=== PATIENT | male | born 2005 | race Caucasian/White ===

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

== ENCOUNTER 2023-03-13 20:17 | Outpatient (CLI) | payer MEDICAID, SELFPAY ==
--- NOTE | 2023-03-13 | DI.RAD_ITS ---
Exam(s) XR THORACIC SPINE COMPLETE EXAM: XR THORACIC SPINE COMPLETE CLINICAL HISTORY: BACK PAIN THORACIC REGION. TECHNIQUE: 2D digital imaging was performed. Three views. COMPARISON: No exams were available for comparison FINDINGS: BONES: There is no fracture or destructive lesion. The vertebral bodies and posterior elements are un remarkable. ALIGNMENT: Within normal limits. DISKS: Interverebral disc spaces are maintained. SOFT TISSUE: Visualized lungs are clear. Heart size is normal. IMPRESSION: Unremarkable radiographs of the thoracic spine. DATA REPOSITORY: RADIATION DOSE DELIVERED:
--- NOTE | 2023-03-13 | DI.RAD_ITS ---
Exam(s) XR WRIST RT COMPL NAVICULAR EXAM: XR WRIST RT COMPL NAVICULAR CLINICAL HISTORY: WRIST PAIN RIGHT. TECHNIQUE: 2D digital imaging was performed. Three views. COMPARISON: CR,XR XR WRIST RT COMPLETE from 06/05/2021 FINDINGS: BONES: No acute fracture is present. No bony destructive lesion is seen. JOINTS: The carpal bones are normally aligned. SOFT TISSUE: Normal. IMPRESSION: Unremarkable radiographs of the right wrist. DATA REPOSITORY: RADIATION DOSE DELIVERED:
--- NOTE | 2023-03-13 | DI.RAD_ITS ---
Exam(s) XR KNEE RT 3V AP,LAT,POOJA EXAM: XR KNEE RT 3V AP,LAT,POOJA CLINICAL HISTORY: RIGHT KNEE PAIN. TECHNIQUE: 2D digital imaging was performed. Three views. COMPARISON: No exams were available for comparison FINDINGS: BONES: No acute fracture is present. No bony destructive lesion is seen. JOINTS: The knee is normally aligned. No joint effusion is seen. SOFT TISSUE: Normal. IMPRESSION: Unremarkable radiographs of the right knee. DATA REPOSITORY: RADIATION DOSE DELIVERED:
--- NOTE | 2023-03-13 21:58 | DI.VRAD_ITS ---
PROCEDURE INFORMATION: Exam: XR Thoracic Spine Exam date and time: 03/13/2023 21:32 Age: 17 years old Clinical indication: Other: Back pain TECHNIQUE: Imaging protocol: Radiologic exam of the thoracic spine. Views: 3 views. COMPARISON: CR XR LUMBAR SPINE COMPLETE 10/15/2020 13:40 FINDINGS: Bones/joints: No acute fracture or subluxation. Soft tissues: Unremarkable. IMPRESSION: No acute bony pathology. Dictated and Authenticated by: Anjana Stein MD. Ordering:PRO Lopez MD
--- NOTE | 2023-03-13 21:58 | DI.VRAD_ITS ---
PROCEDURE INFORMATION: Exam: XR Right Wrist Exam date and time: 03/13/2023 21:27 Age: 17 years old Clinical indication: Other: RT wrist ? fracture TECHNIQUE: Imaging protocol: Radiologic exam of the right wrist. Views: 3 or more views. COMPARISON: CR XR WRIST RT COMPLETE 06/05/2021 18:52 FINDINGS: Bones/joints: No acute fracture or subluxation. The scaphoid is intact. Soft tissues: Unremarkable. IMPRESSION: No acute bony pathology. Dictated and Authenticated by: Anjana Stein MD. Ordering:PRO Lopez MD
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
== END 2023-03-13 20:37 ==
LOC: DI 20:19
PROVIDERS: PCP Pediatrics; Visit Provider Physician Assistant Medical
DX: V18.0XXA Pedal cycle driver injured in noncollision transport accident in nontraffic accident, initial encounter (principal); M54.6 Pain in thoracic spine; M25.561 Pain in right knee; M25.531 Pain in right wrist
CPT/HCPCS: 73562; 72072; 73110

== ENCOUNTER 2023-03-22 01:02 | Outpatient (CLI) | payer MEDICAID, SELFPAY ==
--- NOTE | 2023-03-22 | DI.MRI_ITS ---
Exam(s) MR UPPER JOINT RT WO EXAM: MR UPPER JOINT RT WO CLINICAL HISTORY: RT WRIST PAIN M25.531 INJURY LAST WEEK W/O FX, ? LIGAMENTOUS INJURY. TECHNIQUE: Multiplanar multisequence MRI was performed. COMPARISON: Plain films 13 March 2023 FINDINGS: Exam is mildly limited by motion. BONES: There is no fracture or contusion pattern. JOINTS: The radiocarpal joint is unremarkable. The carpal joints are unremarkable. No joint effus ions. TENDONS: Flexors: Unremarkable. Extensors: Unremarkable. MUSCLES: Unremarkable. MEDIAN NERVE: Unremarkable on this noncontrast examination. SOFT TISSUES: Unremarkable. LIGAMENTS: Unremarkable. TRIANGULAR FIBROCARTILAGE: Unremarkable. OTHER: Scapholunate ligament appears intact. IMPRESSION: Unremarkable MRI of the right wrist. DATA REPOSITORY:
== END 2023-03-22 01:22 ==
LOC: DI 01:02
PROVIDERS: PCP Pediatrics; Visit Provider Physician Assistant Medical
DX: M25.531 Pain in right wrist (principal); V18.0XXD Pedal cycle driver injured in noncollision transport accident in nontraffic accident, subsequent encounter
CPT/HCPCS: 73221

== ENCOUNTER 2023-04-25 01:03 | Outpatient (CLI) | payer MEDICAID, SELFPAY ==
--- NOTE | 2023-04-25 06:49 | DI.MRI_ITS ---
Exam(s) MR LOWER JOINT RT WO EXAM: MR LOWER JOINT RT WO CLINICAL HISTORY: pain, ?meniscus tear,INTERNAL DERANGEMENT RT KNEE,M23.91. TECHNIQUE: Multiplanar multisequence MRI was performed. COMPARISON: CR,XR XR KNEE RT 3V AP,LAT,POOJA from 03/13/2023 FINDINGS: BONES: Small contusions are seen in the femoral condyles bilaterally. No evidence of an occult fract ure. JOINTS: Articular cartilage is unremarkable. There is a small amount of fluid in the joint space. TENDONS: Extensor mechanism: Unremarkable. Medial retinaculum: Unremarkable. Lateral retinaculum: Unremarkable. Popliteus: Unremarkable. MUSCLES: Unremarkable. MENISCI: The medial meniscus is unremarkable. The lateral meniscus is unremarkable. SOFT TISSUES: Unremarkable. LIGAMENTS: Anterior Cruciate: Unremarkable. Posterior Cruciate: Unremarkable. Medial Collateral:Unremarkable. Lateral Collateral: Unremarkable. OTHER: IMPRESSION: 1. There is no evidence of a meniscal or ligament tear. 2. No evidence of an occult fracture. 3. Mild edema seen in the femoral condyles. This may represent contusions. DATA REPOSITORY:
== END 2023-04-25 01:23 ==
PROVIDERS: PCP Pediatrics; Visit Provider Student in an Organized Health Care Education/Training Program
DX: M25.561 Pain in right knee (principal)
CPT/HCPCS: 73721

== ENCOUNTER 2023-08-19 00:55 | Emergency (ER) | payer MEDICAID, SELFPAY ==
[2023-08-19 00:57] VITALS: PULSE 84; RESP 18; TEMP 36.8; O2SAT 99
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
[2023-08-19 02:30] VITALS: BP 108/53; PULSE 68; RESP 18; O2SAT 99
== END 2023-08-19 04:21 | disposition home or self-care (01) ==
PROVIDERS: Emergency Provider Emergency Medicine Emergency Medical Services; PCP Pediatrics
DX: H93.13 Tinnitus, bilateral (principal); S06.0X0A Concussion without loss of consciousness, initial encounter; F17.210 Nicotine dependence, cigarettes, uncomplicated; V86.06XA Driver of dirt bike or motor/cross bike injured in traffic accident, initial encounter; Z87.820 Personal history of traumatic brain injury
CPT/HCPCS: 82962; 99283

== ENCOUNTER 2023-10-08 18:48 | Outpatient (REF) | payer MEDICAID, SELFPAY ==
[2023-10-08 19:24] LABS: Abs Immature Grans 0.04 10^3/uL (0.0-0.06); Absolute Basophil Count 0.06 10^3/uL (0.0-0.2); Absolute Eosinophil Count 0.03 10^3/uL (0.0-0.7); Absolute Lymphocyte Count 2.09 10^3/uL (1.2-3.4); Absolute Neutrophil Count 6.02 10^3/uL (1.2-6.7); Basophils % 0.7; ESR 5 mm/hr (0-15); Eosinophils % 0.3; HCT 46.3 % (40.0-50.0); HGB 16.1 g/dL (13.5-17.5); Immature Grans % 0.5; Lymphocytes % 23.6; MCH 30.6 pg (27.0-33.0); MCHC 34.8 % (32.0-36.0); MCV 88 fL (80-95); MPV 9.7 fL (8.0-11.0); Monocytes % 6.8; Neutrophils % 68.1; Platelet Count 262 10^3/uL (130-400); RBC 5.27 10^6/uL (4.36-5.78); RDW 11.9 % (11.8-14.1); RDW-SD 38.3 fL; WBC 8.84 10^3/uL (4.4-10.8)
[2023-10-08 19:52] LABS: ALT 30 U/L (16-63); AST 27 U/L (15-37); Albumin 4.8 g/dL (3.4-5.0); Alkaline Phosphatase 51 U/L (46-116); Amylase 18 U/L (25-115); Anion Gap 13.3 mmol/L (3-11); BUN 20 mg/dL (7-18); Bilirubin, Total 0.8 mg/dL (0.2-1.0); CO2 25.7 mmol/L (21.0-32.0); CREATININE 0.9 mg/dL (0.70-1.30); Calcium 9.9 mg/dL (8.5-10.1); Chloride 102 mmol/L (98-107); Estimated GFR 126.17 (mL/min/1.73m2); Glucose 88 mg/dL (74-106); Lipase 14 U/L (16-77); Magnesium 2.1 mg/dL (1.8-2.4); Potassium 3.8 mmol/L (3.5-5.1); Sodium 141 mmol/L (136-145); TSH (W/Ref FT4) 0.52 uIU/mL (0.52-4.13); Total Protein 8.6 g/dL (6.4-8.2)
[2023-10-10 10:06] LABS: Lyme Ab w Rflx to Lyme Confirm Negative (Negative)
[2023-10-10 10:16] LABS: IgA 83 mg/dL (85-499); Interpretation (See Note); Tissue Transglutaminase IgA <4.0 CU (<20.0)
[2023-10-11 22:28] LABS: Anaplasma phagocytophilum Negative (Negative); B. miyamotoi PCR Negative (Negative); Babesia divergens/MO-1 Negative (Negative); Babesia duncani Negative (Negative); Babesia microti Negative (Negative); Ehrlichia chaffeensis Negative (Negative); Ehrlichia ewingii/canis Negative (Negative); Ehrlichia muris eauclairensis Negative (Negative)
== END 2023-10-08 18:49 | disposition home or self-care (01) ==
LOC: LBN 18:48
PROVIDERS: PCP Pediatrics; Visit Provider Physician Assistant Medical
DX: R11.2 Nausea with vomiting, unspecified (principal)
CPT/HCPCS: 80053; 82784; 83516; 83690; 85652; 87798; 82150; 83735; 84443; 85025; 86618

== ENCOUNTER → 2023-10-17 02:35 | Outpatient (CLI) | payer MEDICAID, SELFPAY ==
--- NOTE | 2023-10-17 | DI.US_ITS ---
Exam(s) US ABDOMEN EXAM: US ABDOMEN CLINICAL HISTORY: NAUSEA, VOMITIING,R11.2 TECHNIQUE: Ultrasound of complete upper abdomen performed using standard protocol. COMPARISON: No exams were available for comparison FINDINGS: There is no ascites evident. LIVER: There are no hepatic lesions evident nor obvious dilatation of intrahepatic ducts. GALLBLADDER/BILIARY: There are no gallstones. No gallbladder wall edema nor pericholecystic fluid. The common hepatic duct isnot dilated, measuring 4mm at the level of bin hepatis. PANCREAS: There is no evidence of pancreatic mass nor dilatation of the pancreatic duct. SPLEEN: The spleen is not enlarged and there are no intrasplenic lesions evident. KIDNEYS:Kidneys exhibit normal size with no evidence of solid mass, calculus, nor hydronephrosis. No cortical cysts evident. ABDOMINAL AORTA: There is no evidence of abdominal aortic aneurysm. IVC: Normal diameter where visualized. IMPRESSION: 1. No evidence of cholelithiasis nor dilatation of the biliary tree. 2. No other significant ultrasound findings in the upper abdomen. 3. There is no ascites. DATA REPOSITORY:
== END ==
PROVIDERS: PCP Pediatrics; Visit Provider Physician Assistant Medical
DX: R11.2 Nausea with vomiting, unspecified (principal)
CPT/HCPCS: 76700